=== PATIENT | male | born 1940 | race Caucasian/White ===

== ENCOUNTER → 2018-09-26 18:56 | Outpatient (REF) | payer MEDICARE, OTHER, SELFPAY ==
[2018-09-26 19:35] LABS: Alanine Aminotransferase 41 IU/L (21-72); Aspartate Aminotransferase 31 IU/L (17-59); BUN Creatinine Ratio 21.1 (6-22); Blood Urea Nitrogen 19 mg/dL (9-20); Calcium 9.8 mg/dL (8.4-10.2); Carbon Dioxide 29 mmol/L (22-32); Chloride 103 mmol/L (98-107); Cholesterol 147 mg/dL (140-199); Estimated Glomerular Filt Rate > 60.0 mL/min (>60); Glucose 104 mg/dL (80-110); HDL Cholesterol 42 mg/dL (40-60); HEMOLYSIS < 15 (0-50); LDL Cholesterol Calculated 82 mg/dL (<100); Potassium 4.3 mmol/L (3.4-5.1); Sodium 141 mmol/L (137-145); Triglycerides 115 mg/dL (35-150)
== END ==
LOC: LAB 18:56
PROVIDERS: PCP Family Medicine Geriatric Medicine; Visit Provider Family Medicine Geriatric Medicine
DX: E78.1 Pure hyperglyceridemia (principal); I25.10 Atherosclerotic heart disease of native coronary artery without angina pectoris; I48.3 Typical atrial flutter; Z13.220 Encounter for screening for lipoid disorders
CPT/HCPCS: 36415; 80048; 80061; 84450; 84460

== ENCOUNTER → 2022-12-16 07:35 | Outpatient (CLI) | payer MEDICARE, OTHER, SELFPAY ==
--- NOTE | 2022-12-16 07:39 | DI.ECHO.S_ITS ---
[place] [facility] +---------+ : : [address] : [address] : : : : [id number] : : : : Phone: [phone]+ Echocardiogram Report + + :Name: LESA RENDON Study Date: 12/16/2022 Height: 66 in : :[facility] ReadingLocation: Weight: 137 lb : : Gender: Male BSA: 1.7 m2 : :: 1940 Age: 82 yrs BP: 118/54 mmHg: :Reason For Study: ORTHOPNEA : :Ordering Physician: DANILO, : :LESA Performed By: Janeth Loyola : :Referring: KWESI RG : + + Interpretation Summary The patient was in sinus bradycardia with heart rates between 40-49 bpm during the exam. Left ventricular wall thickness is mildly increased. The ejection fraction is estimated to be 50-55%. Grade III diastolic dysfunction. The right ventricle is mildly dilated. Right ventricular systolic function is moderately reduced. There is severe biatrial enlargement. There is severe mitral regurgitation. There is severe aortic stenosis, suspect paradoxic low gradient. There is mild to moderate aortic regurgitation. There is mild to moderate tricuspid regurgitation. The right ventricular systolic pressure is estimated to be at least 53 mmHg based on an estimated right atrial pressure of 3 mm Hg. Procedure: A two-dimensional transthoracic echocardiogram with color flow and Doppler was performed. The study quality was technically adequate. There is no prior echocardiogram noted for this patient. The patient was in sinus bradycardia with heart rates between 40-49 bpm during the exam. Left Ventricle: The left ventricle is normal in size. Left ventricular wall thickness is mildly increased. The estimated left ventricular end diastolic volume is 112 ml. The ejection fraction is estimated to be 50-55%. Diastolic parameters suggest a restrictive filling pattern consistent with probable significantly elevated filling pressures. Right Ventricle: The right ventricle is mildly dilated. Right ventricular systolic function is moderately reduced. Atria: There is severe biatrial enlargement. There is no Doppler evidence for an interatrial shunt. Mitral Valve: The mitral valve leaflets appear mildly thickened, but open well. There is severe mitral regurgitation. Aortic Valve: The aortic valve is trileaflet. The aortic valve is severely calcified. There is severely reduced leaflet mobility. There is severe aortic stenosis. The peak aortic velocity is 3.7 m/sec. The aortic valve mean gradient is 33 mmHg. The calculated aortic valve area is 0.59 cm2. There is mild to moderate aortic regurgitation. Tricuspid Valve: The tricuspid valve leaflets are thickened and/or calcified, but open well. There is mild to moderate tricuspid regurgitation. The right ventricular systolic pressure is estimated to be at least 53 mmHg based on an estimated right atrial pressure of 3 mm Hg. Pulmonic Valve: The pulmonic valve leaflets are thin and pliable; valve motion is normal. There is mild pulmonic regurgitation. Great Vessels: The aortic root is normal size. The dimensions of the ascending aorta are normal. The IVC is of normal diameter and collapses greater than 50% with a sniff. This suggests a low right atrial pressure of 3 mm Hg. Pericardium/ Pleura There is no pericardial effusion. There is no pleural effusion. MMode/2D Measurements & Calculations LVIDd: 4.9 cm LVOT diam: 2.0 cm LVIDs: 3.8 cm Ao root diam: 3.2 cm FS: 23.6 % asc Aorta Diam: 3.0 cm EPSS: 0.90 cm Ao Arch Diam (Prox Trans): 2.5 cm IVSd: 1.3 cm LVPWd: 0.99 cm LV medel. diameter/BSA (cm/m^2): 2.9 LV sys. diameter/BSA (cm/m^2): 2.2 LA A2 area: 32.7 cm2 RA long axis: 6.0 cm LA A4 area: 31.2 cm2 RA area: 24.5 cm2 LA length (vol): 6.8 cm RA vol: 84.9 ml LA vol: 127.8 ml RA : 49.8 ml/m2 LA vol index: 75.0 ml/m2 IVC diam: 1.7 cm RVD1 (basal): 4.5 cm RVD2 (mid): 3.2 cm TAPSE: 1.2 cm Doppler Measurements & Calculations Ao V2 max: 368.1 cm/sec LVOT Max Hema: 71.4 cm/sec Ao V2 mean: 259.1 cm/sec LV V1 max P.0 mmHg Ao max P.2 mmHg LV V1 VTI: 18.5 cm Ao mean P.7 mmHg DOYLE(I,D): 0.66 cm2 Ao V2 VTI: 85.6 cm DOYLE(V,D): 0.59 cm2 sev ratio: 0.22 DOYLE indexed to BSA (cm^2/m^2): 0.39 AI P1/2t: 713.6 msec AI dec slope: 154.9 cm/sec2 MV E max hema: 109.4 cm/sec TR max hema: 384.5 cm/sec MV A max hema: 46.2 cm/sec TR max P.1 mmHg MV E/A: 2.4 PA V2 max: 115.7 cm/sec Med Peak E' Hema: 5.5 cm/sec PA V2 mean: 81.3 cm/sec E/E' med: 20.1 PA mean P.9 mmHg Lat Peak E' Hema: 6.5 cm/sec PA pr(Accel): 46.5 mmHg E/E' lat: 16.8 E/e' average: 18.4 MV dec time: 0.17 sec MR ERO: 0.35 cm2 MR VTI: 199.1 cm MR PISA: 5.3 cm2 MR flow rate: 195.2 cm3/sec MR PISA radius: 0.92 cm SV(LVOT): 56.3 ml Reading Physician:10:41 AM
== END ==
PROVIDERS: PCP Family Medicine; Referring Provider Student in an Organized Health Care Education/Training Program; Visit Provider Student in an Organized Health Care Education/Training Program
DX: R06.01 Orthopnea (principal)
CPT/HCPCS: 93306

== ENCOUNTER → 2023-10-15 14:21 | Outpatient (CLI) | payer MEDICARE, OTHER, SELFPAY | PROVIDERS: PCP Family Medicine; Referring Provider Nurse Practitioner; Visit Provider Physician Assistant | DX: L97.522 Non-pressure chronic ulcer of other part of left foot with fat layer exposed (principal); L97.512 Non-pressure chronic ulcer of other part of right foot with fat layer exposed; I73.9 Peripheral vascular disease, unspecified; I10 Essential (primary) hypertension; I25.10 Atherosclerotic heart disease of native coronary artery without angina pectoris; I48.92 Unspecified atrial flutter; Z79.01 Long term (current) use of anticoagulants; Z95.0 Presence of cardiac pacemaker | CPT/HCPCS: 11042; 87070; 87075; 87205; 99203; 99213 ==

== ENCOUNTER → 2023-10-15 15:49 | Outpatient (CLI) | payer MEDICARE, OTHER, SELFPAY ==
--- NOTE | 2023-10-15 15:56 | DI.US.S_ITS ---
PROCEDURE: US ARTERIAL DUPLEX LE BI INDICATIONS: Peripheral vascular disease, unspecified TECHNIQUE: Color and pulse Doppler interrogation was performed of both lower extremity arterial systems, with image documentation. COMPARISON: None. FINDINGS: Right lower extremity: Common femoral artery: 116 cm/sec, with triphasic flow. Deep femoral artery: 137-431 cm/sec, with triphasic flow. Proximal superficial femoral artery: 103 cm/sec, with triphasic flow. Mid superficial femoral artery: 70 cm/sec, with triphasic flow. Distal superficial femoral artery: 46 cm/sec, with triphasic flow. Popliteal artery: 196 cm/sec, with 196 flow. Posterior tibial artery: 23 cm/sec, with monophasic flow. Anterior tibial artery/dorsalis pedis: 26 cm/sec, with monophasic flow. Rey-scale imaging description: Extensive atheromatous plaque throughout. Dense shadowing from atheromatous calcifications are noted at the popliteal artery. Left lower extremity: Common femoral artery: 171 cm/sec, with triphasic flow. Deep femoral artery: 134 cm/sec, with biphasic flow. Proximal superficial femoral artery: 138 cm/sec, with triphasic flow. Mid superficial femoral artery: 60 cm/sec, with triphasic flow. Distal superficial femoral artery: 60 cm/sec, with biphasic flow. Popliteal artery: 69 cm/sec, with biphasic flow. Posterior tibial artery: 77 cm/sec, with biphasic flow. Anterior tibial artery/dorsalis pedis: 25 cm/sec, with biphasic flow. Rey-scale imaging description: Dense shadowing plaque is noted in the mid popliteal artery with downstream monophasic waveforms. IMPRESSION: 1. Markedly elevated velocities within the right profunda suggesting a focal high-grade stenosis. 2. Dense atheromatous calcifications within the mid popliteal arteries bilaterally with downstream monophasic waveforms suspicious for bilateral focal hemodynamically significant stenoses. If further characterization is warranted, and to plan for possible therapeutic intervention, CTA with bilateral lower extremity runoff could be used. Dictated by: Sindy Soto M.D. on 10/17/2023 at 12:04 Approved by: Sindy Soto M.D. on 10/17/2023 at 12:07
--- NOTE | 2023-10-15 17:16 | DI.RAD.S_ITS ---
PROCEDURE: XR FOOT LT MIN 3V INDICATIONS: ULCER ON L 4TH TOE AND POSSIBLE 2ND BROKEN TEN. ULCER ON R 5TH TOE TECHNIQUE: 3 views of the foot were acquired. COMPARISON: [facility], , FOOT 3V RIGHT, 08/24/2011, 12:32. FINDINGS: Bones: No fractures or dislocations. No suspicious bony lesions. There is diffuse interphalangeal joint space narrowing and degenerative changes of the midfoot. Soft tissues: No tibiotalar joint effusion. Achilles tendon appears normal. IMPRESSION: No acute bony abnormality. Osteoarthritis. Dictated by: Sindy Soto M.D. on 10/17/2023 at 11:51 Approved by: Sindy Soto M.D. on 10/17/2023 at 11:51
--- NOTE | 2023-10-15 17:16 | DI.RAD.S_ITS ---
PROCEDURE: XR TOE RT MIN 2V INDICATIONS: ulcer on right 5th toe TECHNIQUE: 3 views of the right 5th toe(s) acquired. COMPARISON: None. FINDINGS: Bones: No fractures or dislocations. No suspicious bony lesions. Severe degenerative changes are present throughout the interphalangeal joints and the TMT joints. Multiple periarticular lucencies are noted suggesting subchondral cystic changes. No discrete cortical lesions are visualized within the 5th phalanges. Soft tissues: No suspicious soft tissue densities. IMPRESSION: 1. Probable severe osteoarthritis although periarticular erosions could also be associated with erosive arthritis. 2. Although no bony erosions are identified at the 5th digit, plain film radiography is relatively insensitive in the acute phases of osteomyelitis and may not demonstrate radiographic changes for 15 days. If acute osteomyelitis is of clinical concern, nuclear medicine regional bone scan or MRI is recommended. Dictated by: Sindy Soto M.D. on 10/17/2023 at 11:51 Approved by: Sindy Soto M.D. on 10/17/2023 at 11:52
== END ==
PROVIDERS: PCP Family Medicine; Referring Provider Nurse Practitioner; Visit Provider Nurse Practitioner
DX: I73.9 Peripheral vascular disease, unspecified (principal); L97.529 Non-pressure chronic ulcer of other part of left foot with unspecified severity; S91.301A Unspecified open wound, right foot, initial encounter; M19.072 Primary osteoarthritis, left ankle and foot; L97.522 Non-pressure chronic ulcer of other part of left foot with fat layer exposed; L97.512 Non-pressure chronic ulcer of other part of right foot with fat layer exposed; I10 Essential (primary) hypertension; I25.10 Atherosclerotic heart disease of native coronary artery without angina pectoris; I48.92 Unspecified atrial flutter; Z79.01 Long term (current) use of anticoagulants; Z95.0 Presence of cardiac pacemaker
CPT/HCPCS: 11042; 73630; 73660; 87070; 87205; 93925; 99213

== ENCOUNTER → 2023-10-26 10:39 | Outpatient (CLI) | payer OTHER, SELFPAY ==
--- NOTE | 2023-10-26 10:40 | DI.CT.S_ITS ---
PROCEDURE: CT ANGIO ABD AORTA RUNOFF INDICATIONS: Chronic wounds to Bilat feet. eval arterial status BLE TECHNIQUE: After the administration of intravenous contrast, 2.5 mm sections acquired from T12 to the feet, with optional delayed image acquisition from the knees to the feet. 3-dimensional maximum intensity projection (MIP) coronal and sagittal reformats, and/or 3-dimensional volume rendering reformatting was then performed. For radiation dose reduction, the following was used: automated exposure control. COMPARISON: None. FINDINGS: Image Quality: Diagnostic. Abdominal aorta: Atherosclerotic disease throughout. Splanchnic vessels: 30% stenosis of the SMA. 50% stenosis of the right renal artery. Probable 50% stenosis of the MARY ALICE. Right lower extremity: Tandem, less than 25% stenosis of the right common iliac artery. 50% stenosis of the right internal iliac artery with poststenotic dilation. Tandem, less than 25% of stenosis of the right external iliac artery. 50% stenosis of the distal common femoral artery. 75% stenosis of the proximal superficial femoral artery, with tandem less than 25% stenosis throughout its course. Short segment of near complete stenosis of the popliteal artery. Occlusion of the anterior tibial artery proximally, with distal reconstitution. Left lower extremity: Long segment of 25% stenosis of the common iliac artery. Approximately 75% stenosis of the proximal internal iliac artery. Tandem short segments of less than 20% stenosis of the external iliac artery. 75% stenosis of the distal common femoral artery. Complete occlusion of the proximal popliteal artery, with reconstitution just proximal to the trifurcation. Occluded anterior tibial artery proximally with distal reconstitution. Lower Chest: No significant findings. ABDOMEN: Liver: No solid mass. Gallbladder: No radiopaque gallstones or wall thickening. Biliary ducts: No biliary dilation. Pancreas: No ductal dilation. Spleen: Size is within normal limits. Adrenal Glands: No adrenal nodules. Kidneys and Ureters: No hydronephrosis. No solid mass. No complex renal cystic lesion which requires follow up. Stomach and Bowel: Normal colonic caliber, without significant wall thickening. Peritoneum: No abnormal intraperitoneal fluid. No free air. Ventral Wall: No hernia. Abdominal Nodes: No retroperitoneal or mesenteric adenopathy by size criteria. Vessels: Aorta and inferior vena cava are normal in size. PELVIS: Pelvic Organs: Unremarkable. Bladder: Unremarkable. Pelvic Nodes: No enlarged lymph nodes. Miscellaneous: No inguinal hernias are seen. Bones: No aggressive osseous abnormality. Surgical fusion of the lumbar spine. Grade 2 anterolisthesis of L5 on S1. Degenerative disc disease. IMPRESSION: Multifocal stenosis. Of note: Short segment of near complete stenosis of the right popliteal artery. Occlusion of the anterior tibial artery proximally, with distal reconstitution. Short segment of complete stenosis of the left popliteal artery. Occlusion of the anterior tibial artery proximally, with distal reconstitution. Short segment of 75% stenosis of the proximal superficial femoral artery on the right. Short segment of 75% stenosis of the distal common femoral artery on the left. Dictated by: Max Farrell M.D. on 10/26/2023 at 11:27 Approved by: Max Farrell M.D. on 10/26/2023 at 11:36
== END ==
PROVIDERS: PCP Family Medicine; Referring Provider Surgery; Visit Provider Surgery
DX: I70.203 Unspecified atherosclerosis of native arteries of extremities, bilateral legs (principal); M43.17 Spondylolisthesis, lumbosacral region; Z98.1 Arthrodesis status
CPT/HCPCS: 75635; Q9967

== ENCOUNTER → 2023-11-04 13:20 | Outpatient (CLI) | payer MEDICARE, SELFPAY | LOC: WC 13:22 | PROVIDERS: PCP Family Medicine; Referring Provider Nurse Practitioner; Visit Provider Surgery | DX: L97.512 Non-pressure chronic ulcer of other part of right foot with fat layer exposed (principal); L97.522 Non-pressure chronic ulcer of other part of left foot with fat layer exposed; I73.9 Peripheral vascular disease, unspecified; I25.10 Atherosclerotic heart disease of native coronary artery without angina pectoris; I11.0 Hypertensive heart disease with heart failure; I48.92 Unspecified atrial flutter; Z95.0 Presence of cardiac pacemaker; Z79.01 Long term (current) use of anticoagulants | CPT/HCPCS: 11042 ==

== ENCOUNTER → 2023-11-18 13:03 | Outpatient (CLI) | payer MEDICARE, OTHER, SELFPAY | PROVIDERS: PCP Family Medicine; Referring Provider Nurse Practitioner; Visit Provider Surgery | DX: L97.512 Non-pressure chronic ulcer of other part of right foot with fat layer exposed (principal); L97.522 Non-pressure chronic ulcer of other part of left foot with fat layer exposed; I73.9 Peripheral vascular disease, unspecified; I25.10 Atherosclerotic heart disease of native coronary artery without angina pectoris; E78.5 Hyperlipidemia, unspecified; I11.0 Hypertensive heart disease with heart failure; I48.92 Unspecified atrial flutter; Z95.0 Presence of cardiac pacemaker; Z79.01 Long term (current) use of anticoagulants | CPT/HCPCS: 11042; 99213 ==

== ENCOUNTER → 2023-12-02 14:25 | Outpatient (CLI) | payer MEDICARE, OTHER, SELFPAY | PROVIDERS: PCP Family Medicine; Referring Provider Nurse Practitioner; Visit Provider Surgery | DX: L97.512 Non-pressure chronic ulcer of other part of right foot with fat layer exposed (principal); L97.522 Non-pressure chronic ulcer of other part of left foot with fat layer exposed; I73.9 Peripheral vascular disease, unspecified; M79.674 Pain in right toe(s); M79.675 Pain in left toe(s); I48.92 Unspecified atrial flutter; Z79.01 Long term (current) use of anticoagulants; I25.10 Atherosclerotic heart disease of native coronary artery without angina pectoris; I10 Essential (primary) hypertension; E78.5 Hyperlipidemia, unspecified | CPT/HCPCS: 97597 ==

== ENCOUNTER → 2023-12-16 08:04 | Outpatient (CLI) | payer MEDICARE, OTHER, SELFPAY | PROVIDERS: PCP Family Medicine; Referring Provider Nurse Practitioner; Visit Provider Surgery | DX: L97.512 Non-pressure chronic ulcer of other part of right foot with fat layer exposed (principal); L97.522 Non-pressure chronic ulcer of other part of left foot with fat layer exposed; I73.9 Peripheral vascular disease, unspecified; M79.674 Pain in right toe(s); M79.675 Pain in left toe(s); I10 Essential (primary) hypertension; E78.5 Hyperlipidemia, unspecified; Z79.01 Long term (current) use of anticoagulants | CPT/HCPCS: 11042 ==

== ENCOUNTER → 2023-12-29 10:27 | Outpatient (CLI) | payer MEDICARE, OTHER, SELFPAY | LOC: WC 10:30 | PROVIDERS: PCP Family Medicine; Referring Provider Nurse Practitioner; Visit Provider Surgery | DX: L97.512 Non-pressure chronic ulcer of other part of right foot with fat layer exposed (principal); I73.9 Peripheral vascular disease, unspecified; L53.9 Erythematous condition, unspecified; M79.674 Pain in right toe(s); M79.675 Pain in left toe(s) | CPT/HCPCS: 11042; 99213 ==

== ENCOUNTER → 2024-01-14 13:12 | Outpatient (CLI) | payer MEDICARE, OTHER, SELFPAY | PROVIDERS: PCP Family Medicine; Referring Provider Family Medicine; Visit Provider Physician Assistant | DX: L97.512 Non-pressure chronic ulcer of other part of right foot with fat layer exposed (principal); I73.9 Peripheral vascular disease, unspecified; L97.522 Non-pressure chronic ulcer of other part of left foot with fat layer exposed; L53.9 Erythematous condition, unspecified; M79.675 Pain in left toe(s); M79.674 Pain in right toe(s); I10 Essential (primary) hypertension; I25.10 Atherosclerotic heart disease of native coronary artery without angina pectoris; I48.92 Unspecified atrial flutter; Z95.0 Presence of cardiac pacemaker; Z79.01 Long term (current) use of anticoagulants | CPT/HCPCS: 11042; 97597; 99214 ==

== ENCOUNTER → 2024-02-02 13:46 | Outpatient (CLI) | payer MEDICARE, OTHER, SELFPAY | PROVIDERS: PCP Family Medicine; Referring Provider Nurse Practitioner; Visit Provider Surgery | DX: L97.512 Non-pressure chronic ulcer of other part of right foot with fat layer exposed (principal); L97.522 Non-pressure chronic ulcer of other part of left foot with fat layer exposed; I73.9 Peripheral vascular disease, unspecified; L53.9 Erythematous condition, unspecified; I25.10 Atherosclerotic heart disease of native coronary artery without angina pectoris | CPT/HCPCS: 11042; 99213 ==

== ENCOUNTER → 2024-02-16 10:56 | Outpatient (CLI) | payer MEDICARE, OTHER, SELFPAY | LOC: WC 10:59 | PROVIDERS: PCP Family Medicine; Referring Provider Nurse Practitioner; Visit Provider Surgery | DX: L97.512 Non-pressure chronic ulcer of other part of right foot with fat layer exposed (principal); L97.522 Non-pressure chronic ulcer of other part of left foot with fat layer exposed; I73.9 Peripheral vascular disease, unspecified; L53.9 Erythematous condition, unspecified; Z79.01 Long term (current) use of anticoagulants | CPT/HCPCS: 11042 ==

== ENCOUNTER → 2024-03-01 11:38 | Outpatient (CLI) | payer MEDICARE, OTHER, SELFPAY | LOC: WC 11:39 | PROVIDERS: PCP Family Medicine; Referring Provider Nurse Practitioner; Visit Provider Surgery | DX: L97.512 Non-pressure chronic ulcer of other part of right foot with fat layer exposed (principal); L97.522 Non-pressure chronic ulcer of other part of left foot with fat layer exposed; I73.9 Peripheral vascular disease, unspecified; L53.9 Erythematous condition, unspecified; M79.674 Pain in right toe(s); M79.675 Pain in left toe(s); I25.10 Atherosclerotic heart disease of native coronary artery without angina pectoris | CPT/HCPCS: 11042; 99213 ==

== ENCOUNTER → 2024-03-15 10:11 | Outpatient (CLI) | payer MEDICARE, OTHER, SELFPAY | LOC: WC 10:12 | PROVIDERS: PCP Family Medicine; Referring Provider Nurse Practitioner; Visit Provider Surgery | DX: L97.512 Non-pressure chronic ulcer of other part of right foot with fat layer exposed (principal); L97.522 Non-pressure chronic ulcer of other part of left foot with fat layer exposed; I73.9 Peripheral vascular disease, unspecified; L53.9 Erythematous condition, unspecified; Z79.01 Long term (current) use of anticoagulants; Z95.0 Presence of cardiac pacemaker; M79.674 Pain in right toe(s); M79.675 Pain in left toe(s) | CPT/HCPCS: 11042 ==

== ENCOUNTER → 2024-04-12 10:42 | Outpatient (CLI) | payer MEDICARE, OTHER, SELFPAY | LOC: WC 10:43 | PROVIDERS: PCP Family Medicine; Referring Provider Nurse Practitioner; Visit Provider Surgery | DX: L97.512 Non-pressure chronic ulcer of other part of right foot with fat layer exposed (principal); L97.522 Non-pressure chronic ulcer of other part of left foot with fat layer exposed; I73.9 Peripheral vascular disease, unspecified; L53.9 Erythematous condition, unspecified; I25.10 Atherosclerotic heart disease of native coronary artery without angina pectoris; M79.674 Pain in right toe(s); M79.675 Pain in left toe(s) | CPT/HCPCS: 99213 ==

== ENCOUNTER → 2024-04-26 13:01 | Outpatient (CLI) | payer MEDICARE, OTHER, SELFPAY | PROVIDERS: PCP Family Medicine; Referring Provider Nurse Practitioner; Visit Provider Surgery | DX: L97.512 Non-pressure chronic ulcer of other part of right foot with fat layer exposed (principal); L97.522 Non-pressure chronic ulcer of other part of left foot with fat layer exposed; I73.9 Peripheral vascular disease, unspecified; L53.9 Erythematous condition, unspecified; M79.674 Pain in right toe(s); M79.675 Pain in left toe(s) | CPT/HCPCS: 99213 ==